=== PATIENT | female | born 1990 | race American Indian/Alaskan Native ===

== ENCOUNTER 2022-01-31 08:02 | Emergency (ER) | payer OTHER ==
[~2022-01-31] VITALS: Ht 162.6 cm; Wt 88.9 kg
[2022-01-31] MEDS ORDERED: CEFDINIR300 MG PO (09:27)
== END 2022-01-31 09:53 | disposition home or self-care (01) ==
LOC: FSED 08:34
DX: R05.9 Cough, unspecified (principal); J02.9 Acute pharyngitis, unspecified
CPT/HCPCS: 83518; 87400; 99282